=== PATIENT | female | born 1975 ===

== ENCOUNTER 2023-07-26 06:19 | Day surgery (SDC) | payer OTHER ==
[2023-07-23 10:36] LABS: HEMATOCRIT 33.3 % (36.0-45.00); HEMOGLOBIN 10.7 g/dL (12.0-15.00); MEAN CELL VOLUME 79.9 fL (80.00-100.00); MEAN CORPUSCULAR HEMOGLOBIN 25.6 pg (27.00-32.0); PLATELET COUNT 217 K/uL (150-450); RED BLOOD COUNT 4.17 M/uL (4.00-6.00)
[2023-07-23 10:38] LABS: PH,URINE 7.5 (5.0-8.0); URINE APPEARANCE Clear; URINE BILIRRUBIN Negative (NEGATIVE); URINE BLOOD Small; URINE COLOR Yellow; URINE GLUCOSE Negative (NEGATIVE); URINE LEUKOCYTE Negative; URINE NITRATE Negative; URINE PROTEIN Negative (NEGATIVE); URINE UROBILINOGEN 0.2 E.U./dl
[2023-07-23 10:41] LABS: URINE BACTERIA 985.1 uL (0.0-1933); URINE EPITHELIAL CELLS 42.6 uL (0.0-38.8); URINE WBC 3.5 uL (0.0-23.2)
[2023-07-23 11:09] LABS: INR 0.99; PARTIAL THROMBOPLASTIN TIME 25.9 SECONDS (22.0-34.0); PROTHROMBIN TIME 10.4 SECONDS (9.0-11.5)
[2023-07-23 11:15] LABS: ALBUMIN 3.9 gm/dL (3.4-5.0); BILIRUBIN TOTAL 0.47 mg/dL (0.3-1.2); CALCIUM 9.2 mg/dL (8.5-10.1); CREATININE SERUM 0.58 mg/dL (0.55-1.02); GFR 110.49; GLOBULINA 3.1 G/DL (2.4-3.5); POTASSIUM 4.08 mEq/L (3.5-5.1)
[~2023-07-26 06:19] MED LIST: [UNRECOGNIZED DRUG - REMARK] PO
== END 2023-07-26 15:30 | disposition home or self-care (01) ==
LOC: CIR.AMB 06:19
PROVIDERS: ATTEND Obstetrics & Gynecology
DX: N85.8 Other specified noninflammatory disorders of uterus (principal); N72 Inflammatory disease of cervix uteri; N93.9 Abnormal uterine and vaginal bleeding, unspecified; Z88.6 Allergy status to analgesic agent; Z20.822 Contact with and (suspected) exposure to COVID-19

== ENCOUNTER 2025-03-27 06:40 | Inpatient (IN) | payer OTHER ==
[2025-03-21 09:57] VITALS: BP 122/85
[2025-03-21 10:05] LABS: URINE APPEARANCE Clear; URINE BILIRRUBIN Small (NEGATIVE); URINE BLOOD Large; URINE COLOR Dark Yellow; URINE GLUCOSE Negative (NEGATIVE); URINE KETONE 15 (NEGATIVE); URINE LEUKOCYTE Trace; URINE NITRATE Negative; URINE PROTEIN 30 (NEGATIVE); URINE UROBILINOGEN 1.0 E.U./dl
[2025-03-21 10:09] LABS: URINE BACTERIA 47.9 uL (0.0-1933); URINE CAST 1.90 uL (0.0-1.40); URINE EPITHELIAL CELLS 42.1 uL (0.0-38.8); URINE RBC 201.6 uL (0.0-20.8); URINE WBC 28.1 uL (0.0-23.2)
[2025-03-21 10:32] LABS: INR 1.03
[2025-03-21 11:11] LABS: ALT/SGPT 34.0 U/L (12-78); AST/SGOT 21.0 U/L (15-37); BILIRUBIN TOTAL 0.73 mg/dL (0.3-1.2); BUN CREA RATIO 20.0 (7.0-25.0); CREATININE SERUM 0.6 mg/dL (0.55-1.02); GFR 105.82; GLOBULINA 3.6 G/DL (2.4-3.5); GLUCOSE FASTING 76.0 mg/dL (65-100); OSMOLALITY SERUM 280.0 MOSM/KG (275-295)
[2025-03-21 11:30] LABS: BASO % 0.7 % (0.1-1.2); EOS # 0.34 (0.04-0.54); EOS % 4.0 % (0.7-7.0); LYMPH # 1.74 (1.18-3.74); LYMPH % 20.3 % (19.3-53.1); MEAN PLATELET VOLUME 12.30 fl (9.4-12.4); MONO # 0.42 (0.24-0.82); MONO % 4.9 % (4.7-12.5); NEUT # 6.00 (1.56-6.13); NEUT % 70.0 % (34.0-71.1); RED CELL DISTRIBUTION WIDTH 17.1 % (11.6-14.4)
[~2025-03-27] VITALS: Ht 66 cm; Wt 48.5 kg
[~2025-03-27 06:40] MED LIST changes: +CLONAZEPAM1 MG PO; +MAGNESIUM100 MG PO; +OMEGA-31000 MG PO
[2025-03-27] MEDS ORDERED: RINGERS SOLUTION,LACTATED 1,000 ML IV SCH (11:30)
[2025-03-27] MEDS ORDERED: OxyCODONE HCL 5 MG TABLET (ROXICODONE) PO PRN (11:30)
[2025-03-27] MEDS ORDERED: SUGAMMADEX SODIUM 200 MG/2 ML VIAL IV ONE ×3 (13:08→14:15)
[2025-03-27] MEDS ORDERED: CEFAZOLIN SODIUM 1,000 MG VIAL IV ONE (13:15)
[2025-03-27] MEDS ORDERED: CHLORHEXIDINE GLUCONATE 120 ML BOTTLE TOP ONE (13:15)
[2025-03-27] MEDS ORDERED: METRONIDAZOLE/SODIUM CHLORIDE 500 MG/100 ML PIGGYBACK IV ONE (13:15)
[2025-03-27] MEDS ORDERED: MORPHINE SULFATE 4 MG/ML VIAL IV ONE ×2 (14:20→16:40)
[2025-03-27 15:50] VITALS: BP 147/85
[2025-03-27] MEDS ORDERED: ONDANSETRON HCL 2 MG/ML VIAL IV SCH (21:00)
[2025-03-28] VITALS: BP 100/60
[2025-03-28 08:08] LABS: BASO % 0.2 % (0.1-1.2); EOS # 0.03 (0.04-0.54); EOS % 0.2 % (0.7-7.0); LYMPH # 1.61 (1.18-3.74); LYMPH % 13.3 % (19.3-53.1); MEAN PLATELET VOLUME 12.90 fl (9.4-12.4); MONO # 0.91 (0.24-0.82); MONO % 7.5 % (4.7-12.5); NEUT # 9.53 (1.56-6.13); NEUT % 78.6 % (34.0-71.1); RED CELL DISTRIBUTION WIDTH 16.8 % (11.6-14.4)
[2025-03-28 09:05] LABS: ALT/SGPT 28.0 U/L (12-78); AST/SGOT 23.0 U/L (15-37); BILIRUBIN TOTAL 1.05 mg/dL (0.3-1.2); BUN CREA RATIO 19.0 (7.0-25.0); CREATININE SERUM 0.54 mg/dL (0.55-1.02); GFR 119.5; GLOBULINA 3.1 G/DL (2.4-3.5); GLUCOSE FASTING 81.0 mg/dL (65-100); OSMOLALITY SERUM 277.0 MOSM/KG (275-295)
[2025-03-28 09:26] VITALS: BP 113/73
[2025-03-28 16:00] VITALS: BP 122/79
[2025-03-28] MEDS ORDERED: COLACE100 MG PO (19:12)
[2025-03-28] MEDS ORDERED: IBUPROFEN800 MG PO (19:12)
[2025-03-28] MEDS ORDERED: OXYCODONE HCL5 MG PO (19:12)
== END 2025-03-28 19:23 | disposition home or self-care (01) | DRG 743 ==
LOC: CIR.AMB 06:40 → OB/GYN 16:06 → O/R 16:06 → OB/GYN 16:22
PROVIDERS: ADMIT Student in an Organized Health Care Education/Training Program; ATTEND Student in an Organized Health Care Education/Training Program
PROC: 0UT74ZZ Resection of Bilateral Fallopian Tubes, Percutaneous Endoscopic Approach (ICD-10-PCS; 2025-03-27)
PROC: 0TJB8ZZ Inspection of Bladder, Via Natural or Artificial Opening Endoscopic (ICD-10-PCS; 2025-03-27)
PROC: 0UT94ZZ Resection of Uterus, Percutaneous Endoscopic Approach (ICD-10-PCS; principal; 2025-03-27 07:00)
DX: D25.9 Leiomyoma of uterus, unspecified (principal); N80.03 Adenomyosis of the uterus